=== PATIENT | male | born 1990 | race Caucasian/White ===

== ENCOUNTER 2019-08-29 14:42 | Emergency (ER) | payer SELFPAY ==
[2019-08-29] MEDS ORDERED: MORPHINE SULFATE 10 MG/ML INJ IV ONE (15:05)
--- NOTE | 2019-08-29 15:05 | ER Document Report ---
ED Medical Screen (RME) - General Chief Complaint: Groin Injury Stated Complaint: GROIN INJURY Time Seen by Provider: 08/29/19 15:04 Mode of Arrival: Ambulatory Information source: Patient Notes: 29-year-old male presented to ED for severe penile pain. He states he thinks he fractured the right side of his penis. He states he was bit 30 minutes before coming to the emergency room. I did talk with has come and examined the penis and scrotum. He does have swelling to the left testicle and deformity to the penis. Will be ordered IV morphine at this time and be seen by another provider. I have greeted and performed a rapid initial assessment of this patient. A comprehensive ED assessment and evaluation of the patient, analysis of test results and completion of medical decision making process will be conducted by an additional ED providers. TRAVEL OUTSIDE OF THE [place] IN LAST 30 DAYS: No - Related Data Allergies/Adverse Reactions: No Known Allergies Allergy (Verified 08/29/19 14:57) Past Medical History Psychiatric Medical History: Reports: Hx Bipolar Disorder - Immunizations Hx Diphtheria, Pertussis, Tetanus Vaccination: No Physical Exam - Vital signs Vitals: Temp Pulse Resp BP Pulse Ox 98.0 F 71 20 145/69 H 96 08/29/19 14:50 08/29/19 14:50 08/29/19 14:50 08/29/19 14:50 08/29/19 14:50 Course - Vital Signs Vital signs: Temp Pulse Resp BP Pulse Ox 98.0 F 71 20 145/69 H 96 08/29/19 14:50 08/29/19 14:50 08/29/19 14:50 08/29/19 14:50 08/29/19 14:50
[2019-08-29] MEDS ORDERED: ONDANSETRON HCL INJ/PF 4 MG/2 ML SDV IV ONE (15:07)
--- NOTE | 2019-08-29 15:25 | ER Document Report ---
ED General - General Chief Complaint: Penile Injury Stated Complaint: GROIN INJURY Time Seen by Provider: 08/29/19 15:04 Mode of Arrival: Ambulatory Notes: 29-year-old male who was having intercourse just prior to arrival presents emergency department concerned that he may have broken his penis. Patient states that he was having sex when he missed his partners vagina and his penis bounced off the edge and now his penis is swollen, crooked and extraordinarily painful. Last oral intake was approximately 2 hours ago. TRAVEL OUTSIDE OF THE [place] IN LAST 30 DAYS: No - Related Data Allergies/Adverse Reactions: No Known Allergies Allergy (Verified 08/29/19 14:57) Past Medical History - General Information source: Patient - Social History Smoking Status: Former Smoker Drug Abuse: None Family History: Reviewed & Not Pertinent Patient has homicidal ideation: No Psychiatric Medical History: Reports: Hx Bipolar Disorder - Immunizations Hx Diphtheria, Pertussis, Tetanus Vaccination: No Review of Systems - Review of Systems Constitutional: No symptoms reported Genitourinary: See HPI Male Genitourinary: See HPI -: Yes All other systems reviewed and negative Physical Exam - Vital signs Vitals: Temp Pulse Resp BP Pulse Ox 98.0 F 71 20 145/69 H 96 08/29/19 14:50 08/29/19 14:50 08/29/19 14:50 08/29/19 14:50 08/29/19 14:50 Interpretation: Hypertensive - Notes Notes: GENERAL: Alert, interacts well. Appears uncomfortable. HEAD: Normocephalic, atraumatic EYES: Pupils equal, round and reactive to light, extraocular movements intact. ENT: Oral mucosa moist, tongue midline. NECK: Full range of motion, supple, trachea midline. LUNGS: Clear to auscultation bilaterally, no wheezes, rales or rhonchi, no respiratory distress. HEART: Regular rate and rhythm, no murmurs, gallops, rubs. EXTREMITIES: Moves all 4 extremities spontaneously. No cyanosis. : Penis is swollen but not erect, deviates to the left, uncircumcised, scrotum is somewhat swollen, tender to palpation on the right-hand side. Entire penis is tender to palpation. NEUROLOGICAL: Alert and oriented x3, normal speech. PSYCH: Normal mood, normal affect. SKIN: Warm, Dry Course - Re-evaluation Re-evalutation: 08/29/19 15:41 Ordered morphine for the patient, patient has declined. Discussed patient with CHELY Vogel from [facility] urology service, she accepts on behalf of Dr. Del Toro. As we were unable to get an ultrasound here because this is not a type of ultrasound our ultrasound techs perform she recommends that the patient be transferred ED to ED with Dr. Del Toro accepting and they will see him there. She states that about half the time there is not actually a fracture there and so this may not need surgery. Patient request to be transferred via preoperative that vehicle rather than going via EMS. I am agreeable to this plan, he has not received any narcotics at this point. Patient is using a timer on his watch to keep the ice pack on for 10 minutes and then off for 10 minutes. Patient will be transferred via private vehicle. Dr. Del Toro did call back and discuss with me whether or not we have any urology available. I told him that we have no urology production technician during the weekday or the weekend. I also told him that to my knowledge we have no urologist currently credentialed to perform surgeries at our hospital. Dr. Del Toro requested that I once again reinforced to the patient that he needs to stay n.p.o. This is been done, patient is aware that he if he eats or drinks anything he needs surgery it may be delayed and that could result in permanent erectile dysfunction. Patient will be transferred via private vehicle. - Vital Signs Vital signs: Temp Pulse Resp BP Pulse Ox 98.0 F 71 20 145/69 H 96 08/29/19 14:57 08/29/19 14:50 08/29/19 14:50 08/29/19 14:50 08/29/19 14:50 Discharge - Discharge Clinical Impression: Penile fracture Qualifiers: Encounter type: initial encounter Qualified Code(s): S39.840A - Fracture of corpus cavernosum penis, initial encounter Condition: Stable Disposition: [facility] Additional Instructions: Please go directly to [facility]. Please go to the emergency department and let them know that you are being transferred from [facility] emergency department to [facility] em ergency department via private vehicle to be seen by Dr. Del Toro and CHELY Vogel from the urology service for possible penile fracture. We are transferring you there to have an ultrasound and to be seen by urology. Do not eat or drink anything until the urologist gives you permission. If you eat or drink anything and you end up needing surgery this will delay the surgery and could result in permanent erectile dysfunction/impotence.
[2019-08-29 15:54] LABS: ABSOLUTE LYMPHOCYTES (AUTO) 1.3 10^3/uL (0.5-4.7); ABSOLUTE MONOCYTES (AUTO) 0.6 10^3/uL (0.1-1.4); ABSOLUTE NEUT (AUTO) 6.3 10^3/uL (1.7-8.2); BASOPHILS % (AUTO) 0.2 % (0-2); EOSINOPHILS % (AUTO) 0.2 % (0-6); HEMATOCRIT 43.9 % (37.9-51.0); HEMOGLOBIN 15.7 g/dL (13.5-17.0); LYMPHOCYTES % (AUTO) 15.3 % (13-45); MEAN CORPUSCULAR HEMOGLOBIN 31.1 pg (27.0-33.4); MEAN CORPUSCULAR HGB CONC 35.7 g/dL (32.0-36.0); MEAN CORPUSCULAR VOLUME 87 fl (80-97); PLATELET COUNT 206 10^3/uL (150-450); RED BLOOD COUNT 5.04 10^6/uL (4.35-5.55); RED CELL DISTRIBUTION WIDTH 13.2 % (11.5-14.0); SEGMENTED NEUTROPHILS % (AUTO) 77.3 % (42-78); TOTAL CELLS COUNTED % (AUTO) 100 %; WHITE BLOOD COUNT 8.2 10^3/uL (4.0-10.5)
[2019-08-29 16:09] VITALS: BP 132/80
[2019-08-29 16:16] LABS: ALBUMIN 4.8 g/dL (3.5-5.0); ALKALINE PHOSPHATASE 90 U/L (38-126); ANION GAP 9 (5-19); ASPARTATE AMINO TRANSFERASE 51 U/L (17-59); BILIRUBIN,TOTAL 0.8 mg/dL (0.2-1.3); BLOOD UREA NITROGEN 15 mg/dL (7-20); CALCIUM 9.5 mg/dL (8.4-10.2); CARBON DIOXIDE 29 mmol/L (22-30); CHLORIDE 97 mmol/L (98-107); GLUCOSE 113 mg/dL (75-110); POTASSIUM 4.1 mmol/L (3.6-5.0); TOTAL PROTEIN 7.8 g/dL (6.3-8.2)
== END 2019-08-29 16:00 | disposition short-term general hospital (02) ==
LOC: ER 14:42
DX: S39.840A Fracture of corpus cavernosum penis, initial encounter (principal); W51.XXXA Accidental striking against or bumped into by another person, initial encounter; Y93.89 Activity, other specified; Z87.891 Personal history of nicotine dependence
CPT/HCPCS: 36415; 80053; 85025; 99284